=== PATIENT | male | born 1965 | race Caucasian/White ===

== ENCOUNTER 2017-09-15 10:41 | Observation (INO) ==
[2017-09-15] MEDS ORDERED: Piperacillin/Tazobactam 3.375 GM in Water for inj. (sterile) 20 ML IVP ONE (10:58)
[2017-09-15] MEDS ORDERED: Vancomycin 2,000 MG in D5% in Water 500 ML IVPB ONE (10:58)
--- NOTE | 2017-09-15 11:02 | Emergency Department Note ---
Disposition Clinical Impression: Infected dog bite Dog bite Qualifiers: Encounter type: subsequent encounter Qualified Code(s): W54.0XXD - Bitten by dog, subsequent encounter Disposition: Admitted As Inpatient Condition: Good Forms: ED Satisfaction Letter Time of Disposition: 13:38 General Adult HPI - General Chief complaint: ED Animal Bite Stated complaint: Dog bite Time Seen by Provider: 09/15/17 10:54 Source: patient Limitations: no limitations Nursing Notes Reviewed: Yes Vital Signs Reviewed: Yes - History of Present Illness HPI Narrative: Patient is a 52-year-old male that presents to the emergency department after having a dog bite approximately 5 days ago. Patient states that he was given a course of Augmentin. States that his hand is continuing to get red and has swollen. States that there is minimal amount of discharge and has been putting bacitracin ointment on his wound. Patient states that he was bit by his dog. States that all vaccinations for the daughter up-to-date. States that the dog is acting appropriately. Patient does state that he has had an intermittent fever and chills over the past couple of days. Pain Scale: 3 - Related Data Home Medications Medication Instructions Recorded Confirmed Gabapentin [Neurontin] 5 cap PO BID 09/15/17 09/15/17 Losartan/Hydrochlorothiazide 1 tab PO DAILY 09/15/17 09/15/17 [Losartan-Hctz 100-25 mg Tab] Modafinil [Provigil] 200 mg PO BID 09/15/17 09/15/17 Pramipexole [Mirapex] 2 tab PO QAM 09/15/17 09/15/17 Pramipexole [Mirapex] 3 tab PO QPM 09/15/17 09/15/17 Simvastatin [Zocor] 20 mg PO DAILY 09/15/17 09/15/17 amLODIPine [Norvasc] 5 mg PO DAILY 09/15/17 09/15/17 clonazePAM [Klonopin] 1.5 mg PO DAILY 09/15/17 09/15/17 metFORMIN [Glucophage] 500 mg PO DAILY 09/15/17 09/15/17 Previous Rx's Medication Instructions Recorded Amoxicillin/Clavulanate [Augmentin] 875 mg PO BIDWM 3 Days tablet 09/11/17 Allergies Allergy/AdvReac Type Severity Reaction Status Date / Time No Known Allergies Allergy Unverified 11/05/15 09:04 All systems ED: reviewed and negative except as stated. Constitutional: Reports: fever, chills Integumentary: Reports: other (Redness over the left hand and fifth digit. His wounds on the medial and lateral aspect of the fifth digit.) Past Medical History - Past Medical History Medical history: Reports: hypertension Psychiatric history: Reports: no psych history - Social History Smoking Status: Current every day smoker Smokeless Tobacco Status: No Alcohol use: Reports: occasionally Drug use: Reports: none Physical Exam - General Limitations: no limitations General appearance: alert, in no apparent distress - Head Head exam: atraumatic, normocephalic - Eye Eye exam: Present: normal appearance, EOMI - Neck Neck exam: Present: normal inspection, full ROM, trachea midline - Respiratory Respiratory exam: Present: normal lung sounds bilaterally. Absent: respiratory distress, wheezes - Cardiovascular Cardiovascular exam: Present: regular rate, normal rhythm, normal heart sounds, +S1, +S2 - Abdominal Exam Abdominal exam: Present: soft, Non-Tender, normal bowel sounds - Expanded Upper Extremity Exam Hand exam: Present: swelling (Left hand), erythema (Left hand), other (Wound on the medial and lateral aspect of the left fifth digit) Vascular exam: Normal: capillary refill - Neurological Exam Neurological exam: Present: alert, oriented X3 - Psychiatric Psychiatric exam: Present: normal affect, normal mood - Skin Skin exam: Present: warm, dry, intact Course Vital Signs Temperature 98.6 F 09/15/17 10:43 Pulse Rate 99 09/15/17 10:43 Respiratory Rate 18 09/15/17 10:43 Blood Pressure 124/92 09/15/17 10:43 O2 Sat by Pulse Oximetry 98 09/15/17 10:43 Temperature 98.6 F 09/15/17 10:43 Pulse Rate 99 09/15/17 10:43 Respiratory Rate 18 09/15/17 10:43 Blood Pressure 124/92 09/15/17 10:43 O2 Sat by Pulse Oximetry 98 09/15/17 10:43 Oxygen Delivery Oxygen Delivery Room Air Medical Decision Making - MDM Narrative Medical decision making narrative: Due to the patient having a recent dog bite and feeling outpatient therapy with Augmentin the patient will need to receive IV antibiotics and be admitted to the hospital. We will also obtain a CBC, BMP, wound and blood cultures and an XRay of the left hand. We will also consult with surgery for evaluation due to the patient failing outpatient therapy and having swelling and redness to his left hand. Patient will be started on vancomycin and Zosyn. I called and spoke with the on-call hand orthopedic surgeon and he recommended that the patient be admitted to medicine and he will consult on them. The patient did have an elevated glucose of 151. The remainder of the patient's laboratory testing is unremarkable. The x-ray of the left hand did not show any evidence of gas and was read by radiology as no acute abnormality. A consult with the hospitalist and they have accepted the patient to ther service. The patient will be admitted to the hospital at this time for further evaluation and management. - Lab Data Lab results reviewed: Yes I reviewed the patient's lab results. Result diagrams: 09/15/17 11:19 09/15/17 11:19 Lab Results 09/15/17 09/15/17 Range/Units 11:19 11:19 WBC 7.9 (4.3-11.1) K/mcL RBC 5.03 (4.19-5.50) M/mcL Hgb 15.6 (12.9-16.9) g/dL Hct 44.8 (37.5-50.1) % MCV 89.1 (83.0-100.0) fL MCH 31.0 (28.0-33.3) pg MCHC 34.8 (31.6-35.5) g/dL RDW 12.1 (11.5-14.5) % Plt Count 237 (140-400) K/mcL MPV 9.9 (9.4-12.4) fL Immature Gran % 0.5 (0-4) % Seg Neutrophils % 56.4 % Lymphocytes % 26.6 % Monocytes % 12.7 % Eosinophils % 2.5 % Basophils % 1.3 % Neutrophils # 4.4 (1.6-8.9) K/mcL Lymphocytes # 2.1 (0.6-4.6) K/mcL Monocytes # 1.0 (0.0-1.3) K/mcL Eosinophils # 0.2 (0.0-0.6) K/mcL Basophils # 0.1 (0.0-0.2) K/mcL Immature Plt Fraction 4.1 (1.1-6.1) % Sodium 136 (136-145) mEq/L Potassium 3.8 (3.5-5.1) mEq/L Chloride 102 (98-107) mEq/L Carbon Dioxide 25 (23-29) mEq/L BUN 12 (6-20) mg/dL Creatinine 0.65 L (0.70-1.30) mg/dL Est GFR ( Amer) > 60 (> 60) Est GFR (Non-Af Amer) > 60 (> 60) BUN/Creatinine Ratio 18 (6-26) Glucose 151 H (70-105) mg/dL Calculated Osmolality 285 (280-300) Calcium 9.4 (8.6-10.3) mg/dL - Radiology Data Radiology results reviewed: Yes I reviewed the patient's radiology results. Hand X-Ray 09/15/17 10:54 IMPRESSION: 1. No acute abnormality. D/ / Amol Reed MD / Amol Reed MD Interpreting Provider: Amol Reed MD Attestation Statement - Attestation Attestation: I examined this patient and my medical decision-making was reviewed with the Resident Physician. I agree with the documented findings, disposition and treatment plan as described except to the extent set forth below. Patient to ED with an infected finger. Patient is 3 days status post dog bite. He was evaluated here at that time and placed on Augmentin. Over the last 3 days the fingers become increasingly painful, erythematous, and swollen. Dog is known to him and vaccinated. On examination of erythema and swelling of the left fifth digit extending into the fourth. Also examined the dorsum of the hand. Good cap refill. There is an area that is open on the medial aspect of the finger that is draining some purulent material. Plan. Labs, x-ray, IV antibiotic. Will be admitted with hand consult.
[2017-09-15 11:34] LABS: Basophils # 0.1 K/mcL (0.0-0.2); Basophils % 1.3 %; Eosinophils # 0.2 K/mcL (0.0-0.6); Eosinophils % 2.5 %; Hematocrit 44.8 % (37.5-50.1); Hemoglobin 15.6 g/dL (12.9-16.9); Immature Granulocytes % 0.5 % (0-4); Immature Platelets 4.1 % (1.1-6.1); Lymphocytes # 2.1 K/mcL (0.6-4.6); Lymphocytes % 26.6 %; Mean Corpuscular HGB Conc 34.8 g/dL (31.6-35.5); Mean Corpuscular Volume 89.1 fL (83.0-100.0); Mean Platelet Volume 9.9 fL (9.4-12.4); Monocytes % 12.7 %; Neutrophils # 4.4 K/mcL (1.6-8.9); Platelet Count 237 K/mcL (140-400); Red Blood Count 5.03 M/mcL (4.19-5.50); Red Cell Distribution Width 12.1 % (11.5-14.5); Segmented Neutrophils % 56.4 %
[2017-09-15 12:00] LABS: BUN/Creatinine Ratio 18 (6-26); Blood Urea Nitrogen 12 mg/dL (6-20); Calcium 9.4 mg/dL (8.6-10.3); Carbon Dioxide 25 mEq/L (23-29); Chloride 102 mEq/L (98-107); Glucose 151 mg/dL (70-105); Osmolality,Calculated 285 (280-300); Potassium 3.8 mEq/L (3.5-5.1); Sodium 136 mEq/L (136-145); eGFR For African Americans > 60 (> 60); eGFR For Non-African Americans > 60 (> 60)
[2017-09-15] MEDS ORDERED: Naloxone 0.4 MG/ML INJ IVP PRN ×2 (13:12→19:19)
[2017-09-15] MEDS ORDERED: D5% in Water 1,000 ML IVC PRN (13:21)
[2017-09-15] MEDS ORDERED: Dextrose Gel 15 GM/37.5 ML TUBE PO PRN ×2 (13:21)
[2017-09-15] MEDS ORDERED: *HR* Dextrose 50 % in Water (Syg) 50 ML SYRINGE IVP PRN (13:21)
--- NOTE | 2017-09-15 13:37 | Internal Med History&Physical ---
<Jaspreet Gan - Last Filed: 09/15/17 13:32> Date of Encounter: 09/15/17 Time of Encounter: 13:32 Assessment and Plan (1) Cellulitis Current visit: Yes Status: Acute Left hand cellulitis secondary to an infected dog bite -Unasyn IVPB -denies any pain; Ibuprofen for pain PRN -Consult Dr. Fowler- will see this afternoon Qualifiers: Site of cellulitis: extremity Site of cellulitis of extremity: finger Laterality: left Qualified Code(s): L03.012 - Cellulitis of left finger (2) Infected dog bite Current visit: Yes Status: Acute (3) DM (diabetes mellitus) Current visit: Yes Status: Acute Sliding scale insulin coverage, diabetic diet Qualifiers: Diabetes mellitus type: type 2 Diabetes mellitus complication status: without complication Diabetes mellitus [facility] insulin use: without extermination inspector use Qualified Code(s): E11.9 - Type 2 diabetes mellitus without complications (4) DVT prophylaxis Current visit: Yes Status: Acute Heparin 5000 units SC BID Internal Medicine - H&P: HPI Chief complaint: cellulitis left hand Admitted From: Home Plans for Post Hospital Care: Home History of present illness: Mr. Myles is a 52 year old male resents to [facility] today after sustaining a dog bite. He was seen at [facility] ED and sent home with a course of Augmentin and bacitracin. However, he returns this morning with increased swelling of his left third and fourth finger. There is noted to be a minimal amount of discharge from the puncture sites. He does admit to some mild fevers and chills earlier this week but denies any recently. He denies any joint pain. He reports that all vaccinations are up to date for both he and the dogs and that the dog is acting appropriately. Lt hand Xr negative. Past Med Surg Social Fam HX - Past Medical History Medical history: hypertension Psychiatric history: no psych history - Social History Smoking Status: Current every day smoker Smokeless Tobacco Status: No Alcohol use: occasionally Drug use: none - Additional Family History Additional family history: non contributory Internal Medicine - H&P: Meds Amoxicillin/Clavulanate [Augmentin] 875 mg PO BIDWM 3 Days tablet 09/11/17 [Rx] Gabapentin [Neurontin] 5 cap PO BID 09/15/17 [History] Losartan/Hydrochlorothiazide [Losartan-Hctz 100-25 mg Tab] 1 tab PO DAILY [History] Modafinil [Provigil] 200 mg PO BID 09/15/17 [History] Pramipexole [Mirapex] 2 tab PO QAM 09/15/17 [History] Pramipexole [Mirapex] 3 tab PO QPM 09/15/17 [History] Simvastatin [Zocor] 20 mg PO DAILY 09/15/17 [History] amLODIPine [Norvasc] 5 mg PO DAILY 09/15/17 [History] clonazePAM [Klonopin] 1.5 mg PO DAILY 09/15/17 [History] metFORMIN [Glucophage] 500 mg PO DAILY 09/15/17 [History] 3 Allergy/AdvReac Type Severity Reaction Status Date / Time No Known Allergies Allergy Unverified 11/05/15 09:04 All Systems PM: A 10-system review of systems was performed and is negative for pertinent findings except as documented above in the HPI. - Constitutional Constitutional: chills, fever(s) - Integumentary Integumentary IM: as per HPI - Constitutional Vitals: Temp Pulse Resp BP Pulse Ox 98.6 F 99 18 124/92 98 09/15/17 10:43 09/15/17 10:43 09/15/17 10:43 09/15/17 10:43 09/15/17 10:43 General appearance: Present: cooperative, A&O X 3, no acute distress, answers questions appropriately - Respiratory Respiratory exam: Present: CTAB. Absent: accessory muscle use, rales, rhonchi, wheezes - Cardiovascular Cardiovascular exam: Present: RRR, +S1, +S2. Absent: diastolic murmur, gallop, rubs, systolic murmur - Skin Skin exam: Present: erythema, warm - Expanded Skin Exam Full body front and back image: 1 - swelling, erythema on Lt hand Internal Med - H&P Results - Labs CBC & Chem 7: 09/15/17 11:19 09/15/17 11:19 Labs: Short CBC 09/15/17 Range/Units 11:19 WBC 7.9 (4.3-11.1) K/mcL Hgb 15.6 (12.9-16.9) g/dL Hct 44.8 (37.5-50.1) % Plt Count 237 (140-400) K/mcL Neutrophils # 4.4 (1.6-8.9) K/mcL BMP 09/15/17 11:19 Sodium 136 Potassium 3.8 Chloride 102 Carbon Dioxide 25 BUN 12 Creatinine 0.65 L Glucose 151 H Calcium 9.4 - Impressions ITS Impressions Hand X-Ray 09/15/17 10:54 IMPRESSION: 1. No acute abnormality. D/ / Amol Reed MD / Amol Reed MD Interpreting Provider: Amol Reed MD <Navid Fungfunmijonathanromel - Last Filed: 09/16/17 07:15> Date of Encounter: 09/16/17 Internal Medicine - H&P: HPI History of present illness: Mr. Myles is a 52 year old male Past Med Surg Social Fam HX - Family History Father Living Status: Age at : 67 Hx Family GI Disorders: Yes (Esophagus cancer) All Systems PM: A 10-system review of systems was performed and is negative for pertinent findings except as documented above in the HPI. - Constitutional Vitals: Temp Pulse Resp BP Pulse Ox 97.5 F L 66 16 130/83 95 09/16/17 03:55 09/16/17 03:55 09/16/17 03:55 09/16/17 03:55 09/16/17 03:55 Internal Med - H&P Results - Labs CBC & Chem 7: 09/16/17 05:23 09/16/17 05:23 Labs: Short CBC 09/16/17 Range/Units 05:23 WBC 6.3 (4.3-11.1) K/mcL Hgb 14.3 (12.9-16.9) g/dL Hct 41.8 (37.5-50.1) % Plt Count 212 (140-400) K/mcL [facility] 09/16/17 05:23 Sodium 137 Potassium 3.7 Chloride 104 Carbon Dioxide 27 BUN 13 Creatinine 0.67 L Glucose 160 H Calcium 8.7 - Attending Attestation I examined this patient and my medical decision-making was reviewed with the Resident Physician. I agree with the documented findings, disposition and treatment plan as described except to the extent set forth below.
[2017-09-15] MEDS: Ampicillin/Sulbactam 1,500 MG in 0.9 % Sodium Chloride Mini Bag 100 ML IVPB SCH ×4 (15:30→23:01)
--- NOTE | 2017-09-15 16:04 | Orthopedic Consult Note ---
Date of Encounter: 09/15/17 Time of Encounter: 16:00 Assessment and Plan (1) Infected dog bite Current Visit: Yes Status: Acute I discussed the diagnosis in detail the patient. My recommendation is for IV Unasyn. No plans for operative debridement at this point. Local wound care with daily dressing changes and warm, soapy soaks. I will follow clinically and should he not improve would recommend formal operative debridement. I did recommend elevation and motion exercises to reduce the risk of stiffness. I will see the patient tomorrow to evaluate him again clinically. History of Present Illness HPI: Mr. Myles is a 52 year old male who was bit by a dog on Wednesday. He says it was a Doberman/Rottweiler mix. All the vaccinations are up-to-date in the dog was acting appropriately. He was seen in the emergency department at the time of the injury where the wound was washed out and he is placed on Augmentin. He followed up with his primary care doctor today who referred him to the emergency department. The patient complains of mild to moderate pain localized to the left small finger. He has no new injuries or complaints. Pain is worse with movement and better with rest. It is described as sharp and achy. He denies any numbness, tingling, or other associated signs or symptoms or modifying factors. Past Med Surg Social Fam HX - Past Medical History Medical history: hypertension Psychiatric history: no psych history - Social History Smoking Status: Former smoker Smokeless Tobacco Status: Yes (Occasionally) Alcohol use: occasionally Drug use: none - Family History Father Living Status: Age at : 67 Hx Family GI Disorders: Yes (Esophagus cancer) Medications and Allergies Amoxicillin/Clavulanate [Augmentin] 875 mg PO BIDWM 3 Days tablet 09/11/17 [Rx] Gabapentin [Neurontin] 5 cap PO BID 09/15/17 [History] Losartan/Hydrochlorothiazide [Losartan-Hctz 100-25 mg Tab] 1 tab PO DAILY [History] Modafinil [Provigil] 200 mg PO BID 09/15/17 [History] Pramipexole [Mirapex] 2 tab PO QAM 09/15/17 [History] Pramipexole [Mirapex] 3 tab PO QPM 09/15/17 [History] Simvastatin [Zocor] 20 mg PO DAILY 09/15/17 [History] amLODIPine [Norvasc] 5 mg PO DAILY 09/15/17 [History] clonazePAM [Klonopin] 1.5 mg PO DAILY 09/15/17 [History] metFORMIN [Glucophage] 500 mg PO DAILY 09/15/17 [History] 3 Allergy/AdvReac Type Severity Reaction Status Date / Time No Known Allergies Allergy Unverified 11/05/15 09:04 All Systems Reviewed: A 10-system review of systems was performed and is negative for pertinent findings except as documented above in the HPI. Physical Exam - Constitutional Vitals: Temp Pulse Resp BP Pulse Ox 98.9 F 68 16 144/83 97 09/15/17 15:35 09/15/17 15:35 09/15/17 15:35 09/15/17 15:35 09/15/17 15:35 CONSTITUTIONAL -Vitals reviewed -The patient is well developed, well nourished, well groomed PSYCHIATRIC -Fully alert and oriented -Pleasant mood LEFT UPPER EXTREMITY Inspection shows a 2 cm area of longitudinal tearing along the radial aspect of the proximal small finger associated with some mild to moderate erythema and swelling and induration. Minimal drainage without any significant gross purulence. There is no fluctuance or palpable abscess. He can grossly flex and extend the small finger with some limitation due to pain and swelling. There is no concern for flexor tenosynovitis The patient can actively flex and extend all digits, extend the thumb, cross the index and long fingers, make an okay sign, and oppose the thumb. The fingertips are all grossly sensate and well-perfused, and the radial artery pulse is 2+. Diagnostic Imaging: I did personally review and interpret x-rays of the left hand show chronic changes to the small finger from a prior injury. There is soft tissue swelling without acute bony change. No fractures identified. Results - Labs Result Diagrams: 09/15/17 11:19 09/15/17 11:19 Labs: Abnormal lab results Creatinine 0.65 mg/dL (0.70-1.30) L 09/15/17 11:19 Glucose 151 mg/dL (70-105) H 09/15/17 11:19 All other labs normal. Consult Discharge Plan - Plan Referrals: Raghavendra Chase MD [Primary Care Provider] -
[2017-09-15] MEDS: *HR* Heparin 5,000 UNIT/ML VIAL SQ ONE ×2 (16:41→18:30)
[2017-09-15] MEDS: Insulin LISPRO 300 UNITS/3 ML VIAL SQ SCH (16:43)
[2017-09-15 16:52] LABS: Hemoglobin A1C 6.6 %
[2017-09-15] MEDS ORDERED: Insulin LISPRO 300 UNITS/3 ML VIAL SQ SCH (21:00)
[2017-09-15] MEDS: Gabapentin 300 MG CAPSULE PO SCH (21:42)
[2017-09-15] MEDS: clonazePAM 1 MG TABLET PO SCH (21:49)
[2017-09-16 02:48] LABS: Acinetobacter baumannii by PCR Not Detected (Not Detect); Candida albicans by PCR Not Detected (Not Detect); Candida glabrata by PCR Not Detected (Not Detect); Candida krusei by PCR Not Detected (Not Detect); Candida parapsilosis by PCR Not Detected (Not Detect); Candida tropicalis by PCR Not Detected (Not Detect); Enterococcus by PCR Not Detected (Not Detect); Escherichia coli by PCR Not Detected (Not Detect); Klebsiella oxytoca by PCR Not Detected (Not Detect); Klebsiella pneumoniae by PCR Not Detected (Not Detect); Pseudomonas aeruginosa by PCR Not Detected (Not Detect); Serratia marcescens by PCR Not Detected (Not Detect); Staphylococcus aureus by PCR Not Detected (Not Detect); Streptococcus agalactiae(B)PCR Not Detected (Not Detect); Streptococcus by PCR Not Detected (Not Detect); Streptococcus pneumoniae PCR Not Detected (Not Detect); Streptococcus pyogenes (A) PCR Not Detected (Not Detect); blaKPC Carbapenem-Resist Gene Not Detected (Not Detect)
[2017-09-16] MEDS: Ampicillin/Sulbactam 1,500 MG in 0.9 % Sodium Chloride Mini Bag 100 ML IVPB SCH ×4 (05:12→23:14)
[2017-09-16 06:07] LABS: Hematocrit 41.8 % (37.5-50.1); Hemoglobin 14.3 g/dL (12.9-16.9); Mean Corpuscular HGB Conc 34.2 g/dL (31.6-35.5); Mean Corpuscular Hemoglobin 30.7 pg (28.0-33.3); Mean Corpuscular Volume 89.7 fL (83.0-100.0); Mean Platelet Volume 10.2 fL (9.4-12.4); Platelet Count 212 K/mcL (140-400); Red Blood Count 4.66 M/mcL (4.19-5.50); Red Cell Distribution Width 12.1 % (11.5-14.5)
[2017-09-16 06:27] LABS: Vancomycin,Trough 2.9 mcg/mL (10-20)
[2017-09-16 06:41] LABS: BUN/Creatinine Ratio 19 (6-26); Blood Urea Nitrogen 13 mg/dL (6-20); Calcium 8.7 mg/dL (8.6-10.3); Carbon Dioxide 27 mEq/L (23-29); Chloride 104 mEq/L (98-107); Glucose 160 mg/dL (70-105); Osmolality,Calculated 288 (280-300); Potassium 3.7 mEq/L (3.5-5.1); Sodium 137 mEq/L (136-145); eGFR For African Americans > 60 (> 60); eGFR For Non-African Americans > 60 (> 60)
[2017-09-16] MEDS ORDERED: Lidocaine/EPI 1:100k 1% 20 ML VIAL INFILT ONE (07:51)
[2017-09-16] MEDS: Gabapentin 300 MG CAPSULE PO SCH ×2 (09:15→19:57)
[2017-09-16] MEDS: amLODIPine 5 MG TABLET PO SCH (09:16)
[2017-09-16] MEDS: Losartan/HCTZ 50-12.5 TABLET PO SCH (09:16)
[2017-09-16] MEDS: Insulin LISPRO 300 UNITS/3 ML VIAL SQ SCH ×3 (09:17→16:02)
--- NOTE | 2017-09-16 13:59 | Internal Med Progress Note ---
Date of Encounter: 09/16/17 Time of Encounter: 09:30 - Assessment and plan (1) Infected dog bite Current Visit: Yes Status: Acute Assessment and plan: With cellulitis. Continue antibiotics. I&D planned later today. (2) Cellulitis Current Visit: Yes Status: Acute Assessment and plan: Involving the left hand fifth finger. From dog bite. Continue current antibiotics. Blood cultures positive for gram-negative rods. We will follow ID and sensitivities. Repeat blood cultures later today. Moderate risk for complications. Qualifiers: Site of cellulitis: extremity Site of cellulitis of extremity: finger Laterality: left Qualified Code(s): L03.012 - Cellulitis of left finger (3) DM (diabetes mellitus) Current Visit: Yes Status: Chronic Assessment and plan: Blood sugars remain slightly elevated. We will increase sliding scale coverage. Qualifiers: Diabetes mellitus type: type 2 Diabetes mellitus complication status: without complication Diabetes mellitus oysterman insulin use: without fci use Qualified Code(s): E11.9 - Type 2 diabetes mellitus without complications (4) DVT prophylaxis Current Visit: Yes Status: Acute - Subjective Interval history: Patient is feeling much better today. Pain in his left hand has improved. Orthopedics plans to do incision and drainage later today. No fever reported overnight - Constitutional Vitals: Temp Pulse Resp BP Pulse Ox 97.7 F 72 14 135/74 95 09/16/17 10:42 09/16/17 10:42 09/16/17 10:42 09/16/17 10:42 09/16/17 10:42 General appearance: Present: cooperative, A&O X 3, no acute distress, answers questions appropriately - Neck Neck exam general surgery: Present: supple, trachea midline. Absent: lymphadenopathy - Respiratory Respiratory exam: Present: CTAB. Absent: accessory muscle use, rales, rhonchi, wheezes - Cardiovascular Cardiovascular exam: Present: RRR, +S1, +S2. Absent: diastolic murmur, gallop, rubs, systolic murmur - GI/Abdominal GI/Abdominal exam: Present: normal bowel sounds, soft, no peritoneal signs. Absent: distended, tenderness - Extremities Exam Extremities exam: Present: tenderness (With swelling And erythema involving the left hand fifth digit), warm, radial pulses palpable and symmetrical. Absent: calf tenderness, cyanotic, pedal edema - Neurological Exam Neurological exam: Present: CN II-XII intact, oriented X3, no focal deficits. Absent: facial droop, speech deficit - Skin Skin exam: Present: dry, erythema (As described above), intact Internal Medicine: Result - Labs CBC & Chem 7: 09/16/17 05:23 09/16/17 05:23 Labs: Short CBC 09/16/17 Range/Units 05:23 WBC 6.3 (4.3-11.1) K/mcL Hgb 14.3 (12.9-16.9) g/dL Hct 41.8 (37.5-50.1) % Plt Count 212 (140-400) K/mcL BMP 09/16/17 05:23 Sodium 137 Potassium 3.7 Chloride 104 Carbon Dioxide 27 BUN 13 Creatinine 0.67 L Glucose 160 H Calcium 8.7 Consult Discharge Plan - Plan Referrals: Raghavendra Chase MD [Primary Care Provider] - (Office prefers the patient to call and make the appt. Thank you)
[2017-09-16] MEDS ORDERED: Insulin LISPRO 300 UNITS/3 ML VIAL SQ SCH (14:11)
--- NOTE | 2017-09-16 14:11 | Orthopedics Progress Note ---
Date of Encounter: 09/16/17 Time of Encounter: 14:08 - Assessment and Plan (1) Infected dog bite Current Visit: Yes Status: Acute Subjective Interval history: S: The patient is resting in bed comfortably. Moderate pain localized to the dorsal aspect of the left small finger. O: Afebrile and vital signs are stable Left hand is evaluated and there is no significant changes. Moderate swelling to the small finger with erythema along the dorsal aspect of the proximal phalangeal region. He can grossly motor the digit with limitation due to pain and swelling. The radial sided wound has no significant drainage. Tenderness to palpation as expected. The patient can actively flex and extend all digits, extend the thumb, cross the index and long fingers, make an okay sign, and oppose the thumb. The fingertips are all grossly sensate and well-perfused, and the radial artery pulse is 2+. A: Left small finger infection after a bite from a dog; no improvement from yesterday P: Given that he has not had any improvement, my recommendation was to proceed with bedside incision and drainage. After informed consent was obtained I did anesthetize the left small finger with 10 mL 1% lidocaine with epinephrine. Using hemostatic and spread open the wound which did track dorsally. No significant purulent drainage. I did swab the areas for aerobic and anaerobic cultures. I did make a small 1 cm dorsal longitudinal incision and the tunnel this over with the dog bite. I did copiously irrigate the wound and packed with quarter-inch packing. I placed a soft dressing. Continue antibiotics per primary team. I will follow up clinically and do daily dressing changes and peroxide soaks. Objective Vital signs: Vital Signs Temp Pulse Resp BP Pulse Ox 09/16/17 10:42 97.7 F 72 14 135/74 95 09/16/17 09:34 97 09/16/17 07:43 97.8 F 66 14 137/87 97 09/16/17 03:55 97.5 F L 66 16 130/83 95 09/15/17 23:50 98.4 F 80 15 117/72 97 09/15/17 20:38 98.6 F 81 16 128/88 97 Intake and Output 09/15/17 09/16/17 09/16/17 23:59 07:59 15:59 Intake Total 340 / 680 1150 / 1150 580 / 580 Output Total 0 / 0 Balance 340 / 680 1150 / 1150 580 / 580 Intake: IV Fluids 100 / 200 100 / 100 100 / 100 Unasyn 1,500 mg In 0.9 % Sodium 100 / 200 100 / 100 100 / 100 Chloride (Mini-Bag +) 100 ML @ 200 mls/hr IVPB Q6H [facility] Rx#: [id number] Oral 240 / 480 1050 / 1050 480 / 480 Output: Urine 0 / 0 Other: Meal Lunch Percent of Meal Consumed 100% # Voids 6 Weight 127 kg Blood Glucose* 155 159 189 Patient Weight 09/16/17 23:59 Weight 127 kg - Labs CBC & BMP: 09/16/17 05:23 02 05:23 Labs: Abnormal lab results Creatinine 0.67 mg/dL (0.70-1.30) L 09/16/17 05:23 Glucose 160 mg/dL (70-105) H 09/16/17 05:23 POC Glucose 189 (58-89) H 09/16/17 12:08 Hemoglobin A1c 6.6 % (-5.6) H 09/15/17 11:19 Vancomycin Trough 2.9 mcg/mL (10-20) L 09/16/17 05:23 Enterobacteriac sp PCR DETECTED (Not Detect) A 09/15/17 11:19 Proteus species (PCR) DETECTED (Not Detect) A 09/15/17 11:19 Consult Discharge Plan - Plan Referrals: Raghavendra Chase MD [Primary Care Provider] - (Office prefers the patient to call and make the appt. Thank you)
[2017-09-16] MEDS: Ibuprofen 600 MG TABLET PO PRN ×2 (16:02→23:22)
[2017-09-16] MEDS: clonazePAM 1 MG TABLET PO SCH (19:55)
[2017-09-17] MEDS: Ampicillin/Sulbactam 1,500 MG in 0.9 % Sodium Chloride Mini Bag 100 ML IVPB SCH ×2 (06:02→11:25)
[2017-09-17] MEDS: Ibuprofen 600 MG TABLET PO PRN (06:07)
--- NOTE | 2017-09-17 07:36 | Orthopedics Progress Note ---
Date of Encounter: 09/17/17 Time of Encounter: 07:34 - Assessment and Plan (1) Infected dog bite Current Visit: Yes Status: Acute Subjective Interval history: S: The patient is resting in bed comfortably. Moderate pain localized to the dorsal aspect of the left small finger. O: Afebrile and vital signs are stable I and D sites were good, without significant drainage. Persistent erythema and moderate swelling to the proximal aspect of the small finger He can grossly flex and extend the small finger without significant pain. The fingertip is grossly sensate and well-perfused A: Bedside I&D of the left small finger P: At this point my recommendation is for local wound care with daily dressing changes and peroxide soaks. The nurses will repack the wound today. Continue IV antibiotics per the primary team We will follow clinically. Motion exercises to reduce the risk of stiffness. Objective Vital signs: Vital Signs Temp Pulse Resp BP Pulse Ox 09/17/17 07:02 97.5 F L 67 18 151/95 98 09/17/17 04:19 97.3 F L 64 15 132/81 97 09/16/17 19:51 97 09/16/17 19:49 98.2 F 81 16 149/92 97 09/16/17 17:21 97.5 F L 96 17 134/79 98 09/16/17 10:42 97.7 F 72 14 135/74 95 09/16/17 09:34 97 09/16/17 07:43 97.8 F 66 14 137/87 97 Intake and Output 09/16/17 09/16/17 09/17/17 15:59 23:59 07:59 Intake Total 580 / 580 440 / 440 0 / 0 Output Total 0 / 0 0 / 0 Balance 580 / 580 440 / 440 0 / 0 Intake: IV Fluids 100 / 100 200 / 200 Unasyn 1,500 mg In 0.9 % Sodium 100 / 100 200 / 200 Chloride (Mini-Bag +) 100 ML @ 200 mls/hr IVPB Q6H [facility] Rx#: [id number] Oral 480 / 480 240 / 240 0 / 0 Output: Urine 0 / 0 0 / 0 Other: Meal Lunch Dinner Percent of Meal Consumed 100% 100% Weight 127 kg Blood Glucose* 177 178 169 Patient Weight 09/17/17 23:59 Weight 127 kg - Labs CBC & BMP: 09/16/17 05:23 09/16/17 05:23 Labs: Abnormal lab results Creatinine 0.67 mg/dL (0.70-1.30) L 09/16/17 05:23 Glucose 160 mg/dL (70-105) H 09/16/17 05:23 POC Glucose 169 (58-89) H 09/17/17 07:09 Hemoglobin A1c 6.6 % (-5.6) H 09/15/17 11:19 Vancomycin Trough 2.9 mcg/mL (10-20) L 09/16/17 05:23 Enterobacteriac sp PCR DETECTED (Not Detect) A 09/15/17 11:19 Proteus species (PCR) DETECTED (Not Detect) A 09/15/17 11:19 Consult Discharge Plan - Plan Referrals: Raghavendra Chase MD [Primary Care Provider] - (Office prefers the patient to call and make the appt. Thank you)
[2017-09-17] MEDS: Insulin LISPRO 300 UNITS/3 ML VIAL SQ SCH ×2 (08:04→11:56)
[2017-09-17] MEDS: amLODIPine 5 MG TABLET PO SCH (08:04)
[2017-09-17] MEDS: Losartan/HCTZ 50-12.5 TABLET PO SCH (08:04)
[2017-09-17] MEDS: Gabapentin 300 MG CAPSULE PO SCH (08:05)
[2017-09-17 11:35] VITALS: BP 137/84
--- NOTE | 2017-09-17 13:00 | Discharge Summary ---
Date of Encounter: 09/17/17 Time of Encounter: 09:30 - Discharge Diagnosis (1) Infected dog bite Priority: Primary Status: Acute (2) Cellulitis Priority: Secondary Status: Acute Qualifiers: Site of cellulitis: extremity Site of cellulitis of extremity: finger Laterality: left Qualified Code(s): L03.012 - Cellulitis of left finger (3) DM (diabetes mellitus) Priority: Secondary Status: Acute Qualifiers: Diabetes mellitus type: type 2 Diabetes mellitus complication status: without complication Diabetes mellitus skilled nursing insulin use: without skilled nursing use Qualified Code(s): E11.9 - Type 2 diabetes mellitus without complications (4) DVT prophylaxis Priority: Secondary Status: Acute - Discharge Medications Prescriptions: Amoxicillin/Clavulanate [Augmentin] 875 mg PO BIDWM #20 tablet Lactobacillus Acidophilus [Probiotic Acidophilus] 1 each PO BID #20 tablet Home Medications: Gabapentin [Neurontin] 5 cap PO BID 09/15/17 [History] Losartan/Hydrochlorothiazide [Losartan-Hctz 100-25 mg Tab] 1 tab PO DAILY [History] Modafinil [Provigil] 200 mg PO BID 09/15/17 [History] Pramipexole [Mirapex] 2 tab PO QAM 09/15/17 [History] Pramipexole [Mirapex] 3 tab PO QPM 09/15/17 [History] Simvastatin [Zocor] 20 mg PO DAILY 09/15/17 [History] amLODIPine [Norvasc] 5 mg PO DAILY 09/15/17 [History] clonazePAM [Klonopin] 1.5 mg PO DAILY 09/15/17 [History] metFORMIN [Glucophage] 500 mg PO DAILY 09/15/17 [History] Amoxicillin/Clavulanate [Augmentin] 875 mg PO BIDWM #20 tablet 09/17/17 [Rx] Lactobacillus Acidophilus [Probiotic Acidophilus] 1 each PO BID #20 tablet 09/17 [Rx] Allergies/Adverse Reactions: 3 Allergy/AdvReac Type Severity Reaction Status Date / Time No Known Allergies Allergy Unverified 11/05/15 09:04 Date of admission: 09/15/17 19:19 Primary care physician: Raghavendra Chase MD Consults: 09/15/17 13:18 Consult to Physician [CONS] Routine Consulting Provider: Jaspal Fowler Reason for Consult: cellulitis of left hand d/t dog bite Time Notified: 13:21 Call Completed: Yes 09/15/17 13:24 Consult to Orthopedic Surgery [CONS] Routine Consulting Provider: [facility] Reason for Consult: Dog bite, Failed augmentin, appears to be infected Call Completed: Yes Discharging clinician: Mirna Adler Anticipated date of discharge: 09/17/17 - Patient Status Disposition: Home, Self-Care Condition: Good Functional capacity at discharge: independent ambulation Overall status at discharge: patient is progressing back to baseline - Discharge Instructions Follow Up With: Raghavendra Chase MD [Primary Care Provider] - (Office prefers the patient to call and make the appt. Thank you) Jaspal Fowler MD [Partnered Physician] - 09/20/17 9:40 am (Follow up Wednesday / Wednesday in clinic) - Diet and Activity Activity: increase activity as tolerated Diet: diabetic diet, low fat, low cholesterol, low salt diet Hospital course: Mr. Myles is a 52 year old male patient who was hospitalized here after presentation to the ER following a dog bite of left hand which was treated as outpatient with no improvement in his symptoms. He was evaluated by orthopedics and was treated with intravenous antibiotics. He underwent incision and drainage yesterday and packing of the wound. Since then his cellulitis has significantly improved. He is now doing better and is clinically stable for discharge. One out of 2 blood cultures is growing possible Proteus. Repeat blood cultures have been sent. Wound cultures have been negative. I discussed this case with infectious disease and recommended continuing Augmentin and outpatient follow-up with orthopedics next week. We will follow up on final blood culture results and make any changes to antibiotics as needed. - Time Spent with Patient Total time spent providing and/or coordinating discharge services: Less than 30 minutes (25 min) - Constitutional Vitals: Temp Pulse Resp BP Pulse Ox 97.5 F L 83 14 137/84 96 09/17/17 11:34 09/17/17 11:34 09/17/17 11:34 09/17/17 11:34 09/17/17 11:34 General appearance: Present: cooperative, A&O X 3, no acute distress, answers questions appropriately - Neck Neck exam general surgery: Present: supple, trachea midline. Absent: lymphadenopathy - Respiratory Respiratory exam: Present: CTAB. Absent: accessory muscle use, rales, rhonchi, wheezes - Cardiovascular Cardiovascular exam: Present: RRR, +S1, +S2. Absent: diastolic murmur, gallop, rubs, systolic murmur - GI/Abdominal GI/Abdominal exam: Present: normal bowel sounds, soft, no peritoneal signs. Absent: distended, tenderness - Extremities Exam Extremities exam: Present: warm, radial pulses palpable and symmetrical. Absent : calf tenderness, cyanotic, pedal edema Additional comments: Status post I&D of left hand small finger. Cellulitis has mostly subsided. Swelling is improving. - Neurological Exam Neurological exam: Present: alert, CN II-XII intact, oriented X3, no focal deficits. Absent: facial droop, speech deficit - Skin Skin exam: Present: dry, intact
== END 2017-09-17 15:08 | disposition home or self-care (01) | DRG 603 ==
LOC: EMEROO 10:41 → 3ANU 10:41 → SUATTDRO 19:19
PROVIDERS: ADMIT Internal Medicine Cardiovascular Disease; ATTEND Internal Medicine